=== PATIENT | male | born 1985 | race Caucasian/White ===

== ENCOUNTER 2022-07-25 22:51 | Emergency (ER) | payer MEDICAID ==
[~2022-07-25] VITALS: Ht 170.2 cm; Wt 95.3 kg
[2022-07-25] MEDS ORDERED: OMEP20TA20 PO (23:02)
[2022-07-25] MEDS ORDERED: ASPIRIN 81 MG TAB.CHEW PO ONE (23:15)
[2022-07-25] MEDS ORDERED: METOPROLOL TARTRATE 50 MG TABLET PO ONE (23:15)
[2022-07-25] MEDS ORDERED: IV NORMAL SALINE 1000 ML BAG IV ONE (23:15)
[2022-07-25] MEDS ORDERED: MAGNESIUM SULFATE 2 GM in IV DEXTROSE 5% 100 ML IV ONE (23:15)
[2022-07-25] MEDS ORDERED: NITROGLYCERIN OINT 1 GM PACKET TP ONE ×2 (23:15→23:22)
[2022-07-25] MEDS ORDERED: METOPROLOL TARTRATE 50 MG TABLET ONE (23:22)
[2022-07-25] MEDS ORDERED: ASPIRIN 81 MG TAB.CHEW ONE (23:22)
[2022-07-25] MEDS ORDERED: MAGNESIUM SULFATE/D5W 200 ML ONE (23:22)
[2022-07-25 23:30] LABS: MEAN CORPUSCULAR HEMOGLOBIN 30.1 uug (23.8-33.4); MEAN CORPUSCULAR VOLUME 85.7 fL (73.0-96.2); PLATELET COUNT (AUTO) 234 K/uL (152-348)
[2022-07-25 23:39] LABS: CARBON DIOXIDE 25 mmol/L (21-32); CHLORIDE 101 mmol/L (98-107); GLUCOSE 106 mg/dL (74-106); POTASSIUM 3.3 mmol/L (3.5-5.1); UREA NITROGEN, BLOOD 11 mg/dL (7-18)
[2022-07-25 23:51] LABS: ALANINE AMINOTRANSFERASE 45 U/L (16-63); ALKALINE PHOSPHATASE 64 U/L (50-136); ASPARTATE AMINOTRANSFERASE 21 U/L (15-37); BILIRUBIN,DIRECT < 0.1 mg/dL (0.0-0.2); BILIRUBIN,TOTAL 0.3 mg/dL (0.2-1.0); TOTAL PROTEIN, SERUM 8.2 g/dL (6.4-8.2)
[2022-07-25] MEDS ORDERED: POTASSIUM BICARBONATE/CIT AC 25 MEQ TABLET.EFF ONE (23:53)
[2022-07-26] MEDS ORDERED: POTASSIUM BICARBONATE/CIT AC 25 MEQ TABLET.EFF PO ONE
--- NOTE | 2022-07-26 | NUR ---
Klyte 50meq spilled on the floor. will pull out another dose of Klyte 50meq
[2022-07-26] MEDS ORDERED: POTASSIUM BICARBONATE/CIT AC 25 MEQ TABLET.EFF ONE (00:03)
--- NOTE | 2022-07-26 00:06 | NUR ---
Klyte 50 meq given
--- NOTE | 2022-07-26 03:30 | NUR ---
Patient discharged to home in stable condition. Written and verbal after care instructions given. Patient verbalizes understanding of instructions. Stressed follow up or return to ER for worsening s/s. Patient is a/ox4, NAD noted. Patient is able to walk with steady gait, accompanied by his
[2022-07-26 03:34] VITALS: BP 155/63
== END 2022-07-26 03:35 | disposition home or self-care (01) ==
LOC: ER 22:58
DX: R07.89 Other chest pain (principal); E16.1 Other hypoglycemia; R03.0 Elevated blood-pressure reading, without diagnosis of hypertension
CPT/HCPCS: 99291; 96365; 80076; 80048; 83036; 83880; 83735; 85025; 85730; 84484 ×3; 36415 ×2; 93005; 71045; 83605 ×2; J3475; J7040; A4663